=== PATIENT | male | born 1960 | race Caucasian/White ===

== ENCOUNTER → 2017-12-24 | Outpatient (CLI) | payer BC | LOC: GMAE 17:08 | PROVIDERS: ATTEND Family Medicine | DX: M25.561 Pain in right knee (principal) ==

== ENCOUNTER → 2019-02-09 | Outpatient (CLI) | payer BC | LOC: GMAE 14:50 | PROVIDERS: ATTEND Family Medicine | DX: M10.071 Idiopathic gout, right ankle and foot (principal) ==